=== PATIENT | male | born 1950 | race Caucasian/White ===

== ENCOUNTER 2024-03-13 02:56 | Emergency (ER) | payer OTHER, SELFPAY ==
[2024-03-13 03:00] VITALS: BP 104/65
[2024-03-13 03:26] VITALS: BP 133/59
--- NOTE | 2024-03-13 03:44 | ED.GENMED ---
Addendum entered and electronically signed by Tahmina Brand PA-C 03/14/24 09:29:
Positive blood culture appreciated. Urine appears to be the source, gram-negative rods in the blood culture bottle. Patient was called and left a message on his cell phone to return to the ER.
Original Note:
History of Present Illness
<ALEXANDRE Kaur - Last Filed: 03/13/24 06:49>
General
Chief Complaint: Fever
Source: patient and spouse
Exam Limitations: none
Time Seen by Provider: 03/13/24 03:30
Nursing documentation reviewed up to this point in time: agreed with
Travel History
Have you had any contact with someone who has COVID-19?: No
Do you have any symptoms of coronavirus? Fever > 100 degrees, chills, cough, shortness of breath, sore throat, loss of taste or smell, muscle aches, or headache?: Yes
Symptoms:: fever cough
History of Present Illness
History of Present Illness:
This is a 73 year old male with history of CKD stage 3 and Raynaud's disease who presents to the ED with complaint of fever x1 week. Patient reports he has had a fever tmax 103.1 degree F oral starting last week. He has associated chills and cold
sweats. He has been taking Ibuprofen and Tylenol which provide relief. He states his symptoms began with a sore throat last week, which has now resolved. He has also been feeling mildly nauseous. He has an intermittent dry cough. He went to urgent
care 2 days ago, where he had a negative rapid strep, pending throat culture and unremarkable CXR. He started to feel better yesterday morning but gradually throughout the day. He had a telehealth appointment who started him on Doxycycline. He has
had 1 dose so far. His last Ibuprofen was 1hr ago and Tylenol around 11pm. He admits to mild urinary frequency. He denies SOB, CP, headaches, dysuria, nausea, vomiting or diarrhea. He denies known sick contacts or recent travel. No recent hikes or
known tic bites. Denies rashes.
Review of Systems
<ALEXANDRE Kaur - Last Filed: 03/13/24 06:49>
Review of Systems
Allergies reviewed?: Yes
All Other Systems: Not applicable
Constitutional: Reports fever and chills
EENT: Reports sore throat
Respiratory: Reports cough
Cardiac: Reports no symptoms
ABD/GI: Reports no symptoms
: Reports no symptoms
Musculoskeletal: Reports no symptoms
Skin: Reports no symptoms
Neurological: Reports no symptoms
Endocrine: Reports no symptoms
Hematologic/Lymphatic: Reports no symptoms
Psychiatric: Reports no symptoms
Phy Exam
<ALEXANDRE Kaur - Last Filed: 03/13/24 06:49>
General Physical Exam
General Presentation: well appearing and no apparent distress
General Skin: dry and feels hot
General Habitus: normal
General Mental: alert
General Hydration: appears well hydrated
ENT Exam
ENT Exam: EOMI, pharynx normal, neck supple and normocephalic
Eye Exam
Eye Exam: PERRL, cornea clear and conjunctiva normal
Cardiovascular Exam
Cardiovascular Exam: regular rate/rhythm, no edema, no murmur and normal peripheral pulses
Pulmonary Exam
Pulmonary Exam: lungs clear, no respiratory distress, no rales, no crackles, no rhonchi, no stridor, no wheezing and no cough
Gastrointestinal Exam
Gastrointestinal Exam: normal bowel sounds, non tender, soft, no organomegaly, no pulsatile mass and non distended
Neurological Exam
Neurological Exam: alert, oriented x3, no motor deficits and speech normal
Musculoskeletal Exam
Musculoskeletal Exam: full ROM and no edema
Skin Exam
Skin Exam: normal color, warm/dry, no rash and no petechia
Psychiatric Exam
Psychiatric Exam: normal mood/affect
Course
<ALEXANDRE Kaur - Last Filed: 03/13/24 06:49>
Orders/Labs/Results
Orders:
Orders
03/13/24 03:13
COVID-19 Antigen Urgent
Source: Nasal Swab
Influenza A+B Rapid Molecular Urgent
ARIA Source: Nasal Swab
Specimen Description:
03/13/24 03:43
CXR2 [CR Chest - 2 Views ] Urgent
Comment:
Reason For Exam: Cough
03/13/24 04:30
Complete Blood Count/With Diff Urgent
Comprehensive Metabolic Panel Urgent
Lactic Acid Urgent
Lipase Urgent
Troponin I Urgent
Urinalysis Reflex To Culture Urgent
Date Specimen was Collected: 03/13/24
Time Specimen was Collected: 04:29
Urine Microscopic Reflex Cult Urgent
Blood Culture Q30M
ARIA Source: Blood/Venous
Specimen Description:
Urine Culture Urgent
ARIA Source: U
Specimen Description:
Date Specimen was Collected: 03/13/24
Time Specimen was Collected: 04:29
03/13/24 04:34
Blood Culture Q30M
ARIA Source: Blood/Venous
Specimen Description:
03/13/24 06:46
Fosfomycin [Monurol] 3 gm PO ONCE ONE
Abnormal Lab Results
03/13/24
04:30
RBC 3.73 L 10^6/uL
(4.70-6.10)
Hgb 11.1 L g/dL
(13.0-18.0)
Hct 33.1 L %
(39.0-52.0)
Absolute Neuts (auto) 7.6 H 10^3/uL
(1.4-6.5)
Absolute Lymphs (auto) 0.2 L 10^3/uL
(1.2-3.4)
Neutrophils % 92.9 H %
(42.2-75.2)
Lymphocytes % 2.8 L %
(20.5-51.1)
Carbon Dioxide 21 L mmol/L
(22-30)
BUN 52 H mg/dl
(9-20)
Creatinine 2.6 H mg/dL
(0.7-1.3)
Glucose 124 H mg/dl
(70-99)
Alkaline Phosphatase 133 H U/L
(38-126)
Albumin 3.4 L g/dl
(3.5-5.0)
Urine Ketones Trace A
(Negative)
Ur Occult Blood Reflex 2+ A
(Negative)
Leukocyte Esterase Rfl 2+ A
(Negative)
Urine WBC (Reflex) >100 A /HPF
(0-5)
Urine Bacteria (Reflex) Many A
(Negative)
Urine Albumin (Reflex) 2+ A
(Neg - Trace)
03/13/24 04:30
03/13/24 04:30
Vital Signs
Initial and Last Documented VS:
Initial Vital Signs
Temp Pulse Resp BP Pulse Ox
103.3 F H 118 20 104/65 92
03/13/24 03:00 03/13/24 03:00 03/13/24 03:00 03/13/24 03:00 03/13/24 03:00
Last Documented Vital Signs
Temp Pulse Resp BP Pulse Ox
103.3 F H 71 21 113/68 87
03/13/24 03:00 03/13/24 06:15 03/13/24 03:30 03/13/24 06:00 03/13/24 05:30
<Soy Barbosa, DO - Last Filed: 03/13/24 06:51>
Orders/Labs/Results
Orders:
Orders
03/13/24 03:13
COVID-19 Antigen Urgent
Source: Nasal Swab
Influenza A+B Rapid Molecular Urgent
ARIA Source: Nasal Swab
Specimen Description:
03/13/24 03:43
CXR2 [CR Chest - 2 Views ] Urgent
Comment:
Reason For Exam: Cough
03/13/24 04:30
Complete Blood Count/With Diff Urgent
Comprehensive Metabolic Panel Urgent
Lactic Acid Urgent
Lipase Urgent
Troponin I Urgent
Urinalysis Reflex To Culture Urgent
Date Specimen was Collected: 03/13/24
Time Specimen was Collected: 04:29
Urine Microscopic Reflex Cult Urgent
Blood Culture Q30M
ARIA Source: Blood/Venous
Specimen Description:
Urine Culture Urgent
ARIA Source: U
Specimen Description:
Date Specimen was Collected: 03/13/24
Time Specimen was Collected: 04:29
03/13/24 04:34
Blood Culture Q30M
ARIA Source: Blood/Venous
Specimen Description:
03/13/24 06:46
Fosfomycin [Monurol] 3 gm PO ONCE ONE
Abnormal Lab Results
03/13/24
04:30
RBC 3.73 L 10^6/uL
(4.70-6.10)
Hgb 11.1 L g/dL
(13.0-18.0)
Hct 33.1 L %
(39.0-52.0)
Absolute Neuts (auto) 7.6 H 10^3/uL
(1.4-6.5)
Absolute Lymphs (auto) 0.2 L 10^3/uL
(1.2-3.4)
Neutrophils % 92.9 H %
(42.2-75.2)
Lymphocytes % 2.8 L %
(20.5-51.1)
Carbon Dioxide 21 L mmol/L
(22-30)
BUN 52 H mg/dl
(9-20)
Creatinine 2.6 H mg/dL
(0.7-1.3)
Glucose 124 H mg/dl
(70-99)
Alkaline Phosphatase 133 H U/L
(38-126)
Albumin 3.4 L g/dl
(3.5-5.0)
Urine Ketones Trace A
(Negative)
Ur Occult Blood Reflex 2+ A
(Negative)
Leukocyte Esterase Rfl 2+ A
(Negative)
Urine WBC (Reflex) >100 A /HPF
(0-5)
Urine Bacteria (Reflex) Many A
(Negative)
Urine Albumin (Reflex) 2+ A
(Neg - Trace)
03/13/24 04:30
03/13/24 04:30
Vital Signs
Initial and Last Documented VS:
Initial Vital Signs
Temp Pulse Resp BP Pulse Ox
103.3 F H 118 20 104/65 92
03/13/24 03:00 03/13/24 03:00 03/13/24 03:00 03/13/24 03:00 03/13/24 03:00
Last Documented Vital Signs
Temp Pulse Resp BP Pulse Ox
103.3 F H 71 21 113/68 87
03/13/24 03:00 03/13/24 06:15 03/13/24 03:30 03/13/24 06:00 03/13/24 05:30
<ALEXANDRE Kaur - Last Filed: 03/13/24 06:49>
MDM/Problems Addressed
Differential Diagnosis Includes:
Pneumonia, COVID-19, influenza, strep pharyngitis, UTI, URI
COVID-19 and influenza considered due to fever, however negative results. Strep pharyngitis considered due to sore throat, however symptoms do not meet center criteria. Physical exam shows no oral exudates or erythema. He also has a cough. Rapid
strep at urgent care negative. Pneumonia considered, however CXR had mild suspicious findings but not clear. Lungs were CTA. UTI considered due to urinary frequency and urinalysis findings. I suspect his cough, sore throat, and potentially fever
were related to an URI and has now developed a UTI
<ALEXANDRE Kaur - Last Filed: 03/13/24 06:49>
*Critical Care Note
Total Time (30-74mins, 75-104mins- exclusive of procedures): Not Applicable
ED Attending Note
<ALEXANDRE Kaur - Last Filed: 03/13/24 06:49>
-
Portions of this chart may have been created with voice recognition software.� Occasional wrong word or��sound alike� substitutions may have occurred due to the inherent limitations of voice recognition software.
<Soy Barbosa DO - Last Filed: 03/13/24 06:51>
ED Attending Note
Patient seen and examined by attending physician: Yes
I performed the substantive portion of visit, reviewed & personally made and approve the management plan that is documented in note by myself or CLAUDIA.: No
ED Attending Note:
73-year-old male presents with fever x 1 week. According to , his Tmax was 103.1 �F. He has been taking ibuprofen and with minimal relief. He did have a sore throat which has resolved. Patient was seen by nephrology for proteinuria and is in
the midst of a workup. Patient does report urinary frequency and dysuria. Patient was seen in conjunction with the PA student. I have reviewed and agree with the history and treatment plan presented. On my independent physical exam, patient is
awake, alert, and oriented x3. Heart is regular rate rhythm. Lungs are completely clear to auscultation bilaterally no wheezes rales or rhonchi. Abdomen soft nontender nondistended hepatosplenomegaly. Extremities moves all 4 extremities.
Plan patient will continue to take doxycycline as prescribed by urgent care. He will take a one-time dose of Monurol. He will follow-up as needed.
Discharge Plan
Departure
Patient Disposition: Home (Routine Discharge)
Date of Disposition: 03/13/24
Time of Disposition: 06:50
Patient with high blood pressure during this ER visit?: No
Condition: Good
Discharge Problem:
Viral syndrome, Acute UTI
Instructions: Fever, Adult (DC), Viral Syndrome (DC), Urinary Tract Infection, Adult ED
Referrals:
LIZABETH PALOMO MD [Family Provider] -
Activity Restrictions/Additional Instructions:
It was a pleasure meeting you and taking part in your care. We hope for your continued healing and wellness.
Please read discharge instructions in their entirety. However, they are for general education and may not describe your exact diagnosis at discharge. Information on your ER visit and medical conditions were discussed with you along with appropriate
follow up information...
If indicated, please take your medications as instructed and indicated on discharge paperwork.
Please schedule a follow up appointment as directed. Call to schedule an appointment
Please return to the emergency department with ANY change in, persisting, or worsening of symptoms. If any of your symptoms do not improve, or persist, or become more severe within 6-12 hours, please return to the emergency department for further
care.
Please return to the emergency department if you develop a headache, neck pain/stiffness, fever greater than 100.4F, chest pain, shortness of breath, persistent nausea, vomiting, slurred speech, difficulty walking, numbness/tingling, weakness, signs
of infection or any other symptoms that are worrisome to you.
If you have any questions or concerns please do not hesitate to call the Hospital at or E-mail me directly at [email or web address]
Interventions
Interventions:
*Risk Screen - Suicide Last Done: 03/13/24 03:00
*General Assessment Last Done: 03/13/24 03:00
*Neglect/Abuse Screening Last Done: 03/13/24 03:00
ED- Fall Risk Assessment Last Done: 03/13/24 03:00
*ED COVID-19 Vaccine History Last Done: 03/13/24 03:00
ED- Neurological Assessment Last Done: 03/13/24 03:33
ED-Skin Assessment Last Done: 03/13/24 03:33
Discharge Date and Time
Print Language: ISRAELI
[2024-03-13 03:56] LABS: COVID-19 Antigen Negative (Negative)
[2024-03-13 04:40] LABS: % Basophils 0.5 % (0-2); % Eosinophils 0.5 % (0-6); % Immature Granulocytes 0.2 % (0-0.5); % Lymphocytes 2.8 % (20.5-51.1); % Monocytes 3.1 % (1.7-9.3); % Neutrophils 92.9 % (42.2-75.2); Absolute Lymphocytes 0.2 10^3/uL (1.2-3.4); Absolute Monocytes 0.3 10^3/uL (0.1-0.6); Absolute Neutrophils 7.6 10^3/uL (1.4-6.5); Hematocrit 33.1 % (39.0-52.0); Hemoglobin 11.1 g/dL (13.0-18.0); Mean Corp Hgb Conc. 33.5 g/dL (33.0-37.0); Mean Corpuscular Hgb 29.8 pg (27.0-31.0); Mean Corpuscular Volume 88.7 fL (80.0-94.0); Mean Platelet Volume 9.7 fL (7.4-10.4); Nucleated Red Blood Cells % 0 % (-); Platelet Count 284 10^3/uL (130-400); Red Blood Cell Count 3.73 10^6/uL (4.70-6.10); Red Cell Dist. Width 13.9 % (11.5-14.5); White Blood Cell Count 8.2 10^3/uL (4.8-10.8)
[2024-03-13 04:44] LABS: Urine Albumin 2+ (Neg - Trace); Urine Bilirubin Negative (Negative); Urine Color Yellow; Urine Glucose Negative (Negative); Urine Ketone Trace (Negative); Urine Leukocyte 2+ (Negative); Urine Nitrite Negative (Negative); Urine Occult Blood 2+ (Negative); Urine Urobilinogen Negative (Neg - 1+)
[2024-03-13 04:45] LABS: Urine Character Cloudy (Clear)
[2024-03-13 05:00] VITALS: BP 110/59
[2024-03-13 05:05] LABS: Lactic Acid 1.2 mmol/L (0.7-2.0)
[2024-03-13 05:07] LABS: ALT (SGPT) 35 U/L (0-50); AST (SGOT) 49 U/L (17-59); Albumin 3.4 g/dl (3.5-5.0); Alkaline Phosphatase 133 U/L (38-126); Blood Urea Nitrogen 52 mg/dl (9-20); Calcium 8.4 mg/dl (8.4-10.2); Carbon Dioxide 21 mmol/L (22-30); Chloride 107 mmol/L (98-107); Glucose 124 mg/dl (70-99); Lipase 257 U/L (23-300); Sodium 135 mmol/L (135-145); Total Bilirubin 0.6 mg/dl (0.2-1.3); Total Protein 6.5 g/dl (6.3-8.2); eGFR 25.41
[2024-03-13 05:18] LABS: Troponin I 0.029 ng/ml
[2024-03-13 05:52] LABS: Urine Amorphous Seen; Urine Mucus Many; Urine Squamous Cell >30 /LPF (Few); Urine Urothelial Cell >30 /LPF (FEW)
[2024-03-13 05:53] LABS: Urine Bacteria Many (Negative); Urine Waxy Cast 0-2 /LPF; Urine White Cell >100 /HPF (0-5)
[2024-03-13 05:54] LABS: Urine Sperm Seen
[2024-03-13 06:00] VITALS: BP 113/68
[2024-03-13] MEDS: MONUROL 3 GM PO (06:53)
== END 2024-03-13 07:30 | disposition home or self-care (01) ==
LOC: EMR 02:56
PROVIDERS: EMERGENCY PHYSICIAN Student in an Organized Health Care Education/Training Program; FAMILY PHYSICIAN Internal Medicine
DX: B34.9 Viral infection, unspecified (principal); N39.0 Urinary tract infection, site not specified; N18.30 Chronic kidney disease, stage 3 unspecified; I73.00 Raynaud's syndrome without gangrene
CPT/HCPCS: 99283; 71046; 80053; 81003; 81015; 83605; 83690; 84484; 85025; 87040; 87077; 87086; 87186; 87205; 87502; 87811

== ENCOUNTER 2024-03-14 16:05 | Inpatient (IN) | payer OTHER, SELFPAY ==
[2024-03-14] VITALS (8 sets, daily range): BP systolic 137–158; BP diastolic 46–89; BMI 26.3; BMI 26.0
[2024-03-14 14:03] LABS: % Basophils 0.8 % (0-2); % Eosinophils 2.4 % (0-6); % Immature Granulocytes 0.5 % (0-0.5); % Lymphocytes 6.8 % (20.5-51.1); % Monocytes 11.4 % (1.7-9.3); % Neutrophils 78.1 % (42.2-75.2); Absolute Basophils 0.1 10^3/uL (0-0.2); Absolute Eosinophils 0.2 10^3/uL (0-0.7); Absolute Lymphocytes 0.5 10^3/uL (1.2-3.4); Absolute Monocytes 0.9 10^3/uL (0.1-0.6); Absolute Neutrophils 5.8 10^3/uL (1.4-6.5); Hematocrit 34.7 % (39.0-52.0); Hemoglobin 11.7 g/dL (13.0-18.0); Mean Corp Hgb Conc. 33.7 g/dL (33.0-37.0); Mean Corpuscular Hgb 29.9 pg (27.0-31.0); Mean Corpuscular Volume 88.7 fL (80.0-94.0); Mean Platelet Volume 9.2 fL (7.4-10.4); Nucleated Red Blood Cells % 0 % (-); Platelet Count 308 10^3/uL (130-400); Red Blood Cell Count 3.91 10^6/uL (4.70-6.10); Red Cell Dist. Width 13.9 % (11.5-14.5); White Blood Cell Count 7.5 10^3/uL (4.8-10.8)
[2024-03-14 14:04] LABS: Urine Albumin 1+ (Neg - Trace); Urine Bilirubin Negative (Negative); Urine Character Clear (Clear); Urine Color Yellow; Urine Glucose Negative (Negative); Urine Ketone Negative (Negative); Urine Leukocyte 1+ (Negative); Urine Nitrite Negative (Negative); Urine Occult Blood Trace (Negative); Urine Specific Gravity 1.015 (<1.030); Urine Urobilinogen Negative (Neg - 1+)
--- NOTE | 2024-03-14 14:07 | ED.GENMED ---
History of Present Illness
General
Chief Complaint: Abnormal Lab Value
Source: patient
Exam Limitations: none
Time Seen by Provider: 03/14/24 13:01
Travel History
Have you had any contact with someone who has COVID-19?: No
Do you have any symptoms of coronavirus? Fever > 100 degrees, chills, cough, shortness of breath, sore throat, loss of taste or smell, muscle aches, or headache?: No
History of Present Illness
History of Present Illness:
73-year-old male presents in referral after call back. He was here 2 evenings ago thought to have UTI. He was given fosfomycin. He was called back today as his urine cultures and blood cultures demonstrated gram-negative bacilli. He notes no
persistent fever. He does note occasional shaking chills. No vomiting. He has chronic kidney disease but is not a diabetic. No other complaints at this time
Phy Exam
Physical Exam
Physical Exam:
General: Well-appearing male no acute respiratory distress
HEENT: Normocephalic atraumatic
Heart: Regular rate and rhythm no murmurs
Lungs: Clear no wheeze
Abdomen soft nontender nondistended no guarding rebound normal bowel sound
Extremities: No cyanosis
Course
Orders/Labs/Results
Orders:
Orders
03/14/24 13:55
Complete Blood Count/With Diff Urgent
Comprehensive Metabolic Panel Urgent
Urinalysis Reflex To Culture Urgent
Date Specimen was Collected: 03/14/24
Time Specimen was Collected: 13:47
Urine Microscopic Reflex Cult Urgent
Blood Culture Q30M
ARIA Source: Blood/Venous
Specimen Description:
Urine Culture Urgent
ARIA Source: U
Specimen Description:
Date Specimen was Collected: 03/14/24
Time Specimen was Collected: 13:47
03/14/24 14:02
Blood Culture Q30M
ARIA Source: Blood/Venous
Specimen Description:
03/14/24 14:07
Piperacillin/Tazo 3.375 Gram [Zosyn] 3.375 gram in 50 ml IV NOW
Abnormal Lab Results
03/14/24
13:55
RBC 3.91 L 10^6/uL
(4.70-6.10)
Hgb 11.7 L g/dL
(13.0-18.0)
Hct 34.7 L %
(39.0-52.0)
Absolute Lymphs (auto) 0.5 L 10^3/uL
(1.2-3.4)
Absolute Monos (auto) 0.9 H 10^3/uL
(0.1-0.6)
Neutrophils % 78.1 H %
(42.2-75.2)
Lymphocytes % 6.8 L %
(20.5-51.1)
Monocytes % 11.4 H %
(1.7-9.3)
BUN 50 H mg/dl
(9-20)
Creatinine 2.1 H mg/dL
(0.7-1.3)
Albumin 3.4 L g/dl
(3.5-5.0)
Ur Occult Blood Reflex Trace A
(Negative)
Leukocyte Esterase Rfl 1+ A
(Negative)
Urine RBC 3-6 A /HPF
(0-2)
Urine WBC (Reflex) 26-30 A /HPF
(0-5)
Urine Bacteria (Reflex) Moderate A
(Negative)
Urine Albumin (Reflex) 1+ A
(Neg - Trace)
03/14/24 13:55
03/14/24 13:55
Vital Signs
Initial and Last Documented VS:
Initial Vital Signs
Temp Pulse Resp BP Pulse Ox
97.6 F 70 18 145/77 99
03/14/24 11:28 03/14/24 11:28 03/14/24 11:28 03/14/24 11:28 03/14/24 11:28
Last Documented Vital Signs
Temp Pulse Resp BP Pulse Ox
97.6 F 61 16 146/79 100
03/14/24 11:28 03/14/24 14:00 03/14/24 14:00 03/14/24 14:00 03/14/24 14:00
MDM/Problems Addressed
Differential Diagnosis Includes:
Reviewed prior note. Reviewed microbiology testing. Urine culture and blood cultures show gram-negative bacilli. Vital signs currently stable will recheck labs and cultures. Start Zosyn. Will admit to hospital for gram-negative bacteremiai
likely has a urine source
*Critical Care Note
Total Time (30-74mins, 75-104mins- exclusive of procedures): Not Applicable
ED Attending Note
-
Portions of this chart may have been created with voice recognition software.� Occasional wrong word or��sound alike� substitutions may have occurred due to the inherent limitations of voice recognition software.
Discharge Plan
Departure
Patient Disposition: Admit
Date of Disposition: 03/14/24
Time of Disposition: 14:58
Admit to: Telemetry
Presentation/result/management discussed w/ accepting MD/DO: Hospitalist
Discharge Problem:
Gram-negative bacteremia
Prescriptions:
No Action
multivitamin Tablet
1 tab PO HS
atorvastatin 20 mg tablet
20 mg PO HS
ketoconazole 2 % shampoo
1 applic TOPICAL HS
ibuprofen 200 mg Capsule
400 mg PO Q6H PRN (Reason: mild pain/fever)
acetaminophen 500 mg Tablet
1,000 mg PO Q6H PRN (Reason: mild pain/fever)
lisinopril 10 mg tablet
20 mg PO HS
fiber
1 tab PO HS
Doxycycline
100 mg PO BID
Referrals:
LIZABETH PALOMO MD [Family Provider] -
Interventions
Interventions:
*Risk Screen - Suicide Last Done: 03/14/24 11:28
*General Assessment Last Done: 03/14/24 11:28
*Neglect/Abuse Screening Last Done: 03/14/24 11:28
ED- Fall Risk Assessment Last Done: 03/14/24 13:46
*ED COVID-19 Vaccine History Last Done: 03/14/24 11:28
Discharge Date and Time
Print Language: HEBREW
[2024-03-14 14:11] LABS: Urine Squamous Cell 16-20 /LPF (Few); Urine Urothelial Cell 0-2 /LPF (FEW)
[2024-03-14 14:12] LABS: Urine Bacteria Moderate (Negative); Urine White Cell 26-30 /HPF (0-5)
[2024-03-14 14:31] LABS: ALT (SGPT) 31 U/L (0-50); AST (SGOT) 32 U/L (17-59); Albumin 3.4 g/dl (3.5-5.0); Alkaline Phosphatase 110 U/L (38-126); Blood Urea Nitrogen 50 mg/dl (9-20); Calcium 8.8 mg/dl (8.4-10.2); Carbon Dioxide 25 mmol/L (22-30); Chloride 105 mmol/L (98-107); Estimated Creatinine Clearance 34 ml/min; Glucose 90 mg/dl (70-99); Potassium 4.7 mmol/L (3.5-5.1); Sodium 135 mmol/L (135-145); Total Bilirubin 0.4 mg/dl (0.2-1.3); Total Protein 6.6 g/dl (6.3-8.2); eGFR 32.83
[2024-03-14] MEDS: ZOSYN 50 IV ×2 (15:08→21:50)
--- NOTE | 2024-03-14 15:13 | EDRN ---
Dr. Lombardi in room w/ pt at this time.
--- NOTE | 2024-03-14 15:39 | HPS.HSE ---
Family Physician
-
Family Physician: LIZABETH PALOMO MD
Chief Complaint
-
Fever, chills, positive blood cultures
History of Present Illness
73-year-old male developed fever about a week ago with subsequent sore throat and dry cough. Had a video conference call with his primary care practice and they recommended going to urgent care. Evaluated in urgent care with negative workup
including chest x-ray and rapid strep test. Had a follow-up video conference call with his primary care practice and they empirically placed him on doxycycline twice daily, has taken 4 doses so far.
Symptoms persisted and he came into the emergency room early yesterday morning and diagnosed with possible viral syndrome and urinary tract infection, administered a dose of fosfomycin and discharged. Documentation notes heat had UTI symptoms on
evaluation yesterday. Instructed to continue doxycycline.
After discharge from the ER, it was noted that his blood cultures turn positive and he was called back.
Has not had any further fevers or chills since the ER visit 24 hours ago.
Recently saw a damper worker and is in the midst of a workup for chronic kidney disease.
Remote history of nephrolithiasis over 40 years ago, spontaneously passed 2 stones. Did not require any urologic intervention.
Currently does not see a urologist. Gets up 2-3 times during the night to urinate.
Today for me he denies UTI symptoms.
Medical History
Past Medical History
Past Medical History: Reports Other
Additional Past Medical History:
Essential hypertension
CKD 3b
Raynaud's disease
Remote history of nephrolithiasis
Past Surgical History: Reports Other
Additional Past Surgical History:
Right Achilles tendon rupture and repair
Cataract surgery
Social History
Tobacco: Non-smoker
Alcohol: Occasional
Drug: None
Personal:
Living: With Family
Family History
Family History: Not pertinent
Allergies / Home Medications
Allergies reflects when Allergies were last updated in [employer].
Home Medications with original date entered in [employer]
Allergy/Medication List:
Allergies
Allergy/AdvReac Type Severity Reaction Status Date / Time
contrast dye Allergy Hives Uncoded 03/14/24 11:29
Home Medications
Doxycycline 100 mg PO BID 03/14/24
acetaminophen 500 mg tablet 1,000 mg PO Q6H PRN mild pain/fever 03/14/24
atorvastatin 20 mg tablet 20 mg PO HS 03/14/24
fiber 1 tab PO HS 03/14/24
ibuprofen 200 mg capsule 400 mg PO Q6H PRN mild pain/fever 03/14/24
ketoconazole 2 % shampoo 1 applic topical HS 03/14/24
lisinopril 10 mg tablet 20 mg PO HS 03/14/24
multivitamin 1 tab PO HS 03/14/24
Review of Systems
-
History Source: Patient and Family
A 12 point ROS was completed and negative except as noted: Yes
Physical Exam
Vital Signs
Vital Signs
Temp Pulse Resp BP Pulse Ox
97.6 F 78 16 137/89 99
03/14/24 11:28 03/14/24 15:12 03/14/24 15:12 03/14/24 15:12 03/14/24 15:12
Physical Exam
General: Well Developed, Well Nourished, No Apparent Distress and Comfortable
HEENT: NormoCephalic, Anicteric and Moist mucous membranes
Respiratory: Clear
Cardiac: S1/S2 and Regular Rhythm
GI: Soft, Non Tender and Non Distended
Genito-urinary: Deferred by me
Musculoskeletal: No Clubbing, No Cyanosis and No Edema
Skin: Warm and Dry
Neuro: AO x 3
Hematologic/Lymphatic: No Lymphadenopathy
Psych: Calm
Laboratory Results
-
03/14/24 13:55
03/14/24 13:55
Laboratory Results
Total Bilirubin 0.4 mg/dl (0.2-1.3) 03/14/24 13:55
AST 32 U/L (17-59) 03/14/24 13:55
ALT 31 U/L (0-50) 03/14/24 13:55
Alkaline Phosphatase 110 U/L (38-126) 03/14/24 13:55
Impression/Plan
-
Sepsis due to UTI - presentation yesterday morning with tachycardia, fever and chills at home. Afebrile today. WBC count normal. Hemodynamically stable. [facility], continue empiric antibiotics. Blood cultures noted to be positive for
gram-negative bacilli. Urine culture positive as well. Repeat blood cultures pending.
Check CT abdomen and pelvis without contrast, evaluate for nephrolithiasis or any anatomic explanation for UTI. Avoid fluoroquinolones given history of Achilles tendon rupture.
ID consult.
Essential hypertension -stable.
MIRI on CKD 3B -baseline creatinine 1.7 according to patient. Creatinine was 2.6 yesterday, 2.1 today. Etiology of MIRI likely due to sepsis, use of NSAIDs. Check bladder scan, rule out retention. IV fluid hydration. Hold lisinopril. Stop NSAIDs.
Hyperlipidemia -continue atorvastatin.
Normocytic anemia -likely chronic, likely due to CKD. Will need outpatient follow-up.
Raynaud's disease
Full code
updated at the bedside.
--- NOTE | 2024-03-14 17:28 | EDRN ---
Pt is eating boxed lunch at this time and drinking water. Pt has a ready bed but is to go to CT after [address] scans so will keep pt here to go up after CT.
--- NOTE | 2024-03-14 17:45 | EDRN ---
Infectious Disease w/ pt at this time.
--- NOTE | 2024-03-14 17:55 | EDRN ---
Pt left ED for CT then to go to admission bed.
--- NOTE | 2024-03-14 18:14 | CON.ID ---
Consultation
-
Date/Time Consultation Requested: 03/14/24 15:33
Date/Time Consultation Performed: 03/14/24 18:16
Requesting Provider: Dr Ahuja
Performing Provider: Dr Coffman
Reason for Consultation: UTI
Chief Complaint / Past History
Chief Complaint
Fever, chills, positive blood cultures
History of Present Illness
Mr Ratliff is a 73 year old male with recent course of doxycycline for URI who later developed urinary frequency and decreased stream, also fevers rigors. Seen here, ua with pyuria, continued doxy, got a dose of fosfomycin; urine and blood cultures
later positive and he was recalled for admission.
Since arrival this visit Tmax 103.3, bp stable, wbc 7.5, hgb 11, plt 308, cr 2.1, ua: 26-30 wbc/hpf, 5/3 blood culture GNR, 5/3 urine culture gnr 40K , CT a/p done not yet formally read - my read large prostate and bladder, currently on zosyn which
I agree with.
Past History
Additional Past Medical History:
Essential hypertension
CKD 3b
Raynaud's disease
Remote history of nephrolithiasis
Additional Past Surgical History:
Right Achilles tendon rupture and repair
Cataract surgery
Allergy History:
contrast dye Allergy (Uncoded 03/14/24 11:29)
Hives
Medications Reviewed: Yes
Social History
Tobacco: Non-Smoker
Alcohol: Occasional
Drug: None
Family History
Family History: Not Pertinent
Review of Systems
Review of Systems
General: Fever and Chills
All systems: All other systems were reviewed and were negative
Vital Signs
Temp Pulse Resp BP Pulse Ox
97.6 F 68 16 149/46 98
03/14/24 11:28 03/14/24 17:20 03/14/24 17:20 03/14/24 17:20 03/14/24 17:20
Physical Exam
Physical Exam
Constitutional: No Acute Distress
Cardiovascular: Regular Rate and S1/S2; Negative Murmur or Rub
Pulmonary: Clear and Symmetric; Negative Wheezes, Rales or Rhonchi
Gastrointestinal: Soft, Non Tender, Non Distended and Normal Bowel Sounds
Genito-Urinary: Negative Suprapubic Tenderness or CVA Tenderness
Skin: Warm and Dry; Negative Rash or Jaundice
Lab / Diagnostic Study Results
03/14/24 13:55
03/14/24 13:55
Abs Immat Gran (auto) 0.0 10^3/uL (0-0.05) 03/14/24 13:55
Absolute Neuts (auto) 5.8 10^3/uL (1.4-6.5) 03/14/24 13:55
Absolute Lymphs (auto) 0.5 10^3/uL (1.2-3.4) L 03/14/24 13:55
Absolute Monos (auto) 0.9 10^3/uL (0.1-0.6) H 03/14/24 13:55
Absolute Basos (auto) 0.1 10^3/uL (0-0.2) 03/14/24 13:55
Immature Gran % 0.5 % (0-0.5) 03/14/24 13:55
Neutrophils % 78.1 % (42.2-75.2) H 03/14/24 13:55
Lymphocytes % 6.8 % (20.5-51.1) L 03/14/24 13:55
Monocytes % 11.4 % (1.7-9.3) H 03/14/24 13:55
Eosinophils % 2.4 % (0-6) 03/14/24 13:55
Basophils % 0.8 % (0-2) 03/14/24 13:55
Ur Squamous Epith Cells 16-20 /LPF (Few) 05/04/24 13:55
Microbiology Results
Micro:
03/14/24 14:02 Blood Culture - Pending
Blood/Venous
03/14/24 13:55 Urine Culture - Pending
Urine
03/14/24 13:55 Blood Culture - Pending
Blood/Venous
Assessment / Plan
Probable UTI
GNR Bacteremia
- follow up repeat blood cultures
- follow for ID and sensi of the GNR
- check QTc
- continue zosyn
- follow clinically
[2024-03-14] MEDS: NSS 1000 IV (18:34)
[2024-03-14] MEDS: HEPARIN 5000 UNITS SC (20:29)
[2024-03-14] MEDS: LIPITOR 20 MG PO (21:50)
[2024-03-14] MEDS: THERAGRAN 1 TABLET PO (21:50)
[2024-03-15] MEDS: NSS 1000 IV (05:33)
[2024-03-15] MEDS: ZOSYN 50 IV (05:33)
[2024-03-15 05:55] LABS: % Basophils 0.7 % (0-2); % Eosinophils 2.9 % (0-6); % Immature Granulocytes 0.3 % (0-0.5); % Lymphocytes 11.9 % (20.5-51.1); % Monocytes 11.9 % (1.7-9.3); % Neutrophils 72.3 % (42.2-75.2); Absolute Basophils 0.1 10^3/uL (0-0.2); Absolute Eosinophils 0.2 10^3/uL (0-0.7); Absolute Lymphocytes 0.9 10^3/uL (1.2-3.4); Absolute Monocytes 0.9 10^3/uL (0.1-0.6); Absolute Neutrophils 5.2 10^3/uL (1.4-6.5); Hematocrit 31.8 % (39.0-52.0); Hemoglobin 10.5 g/dL (13.0-18.0); Mean Corpuscular Hgb 29.1 pg (27.0-31.0); Mean Corpuscular Volume 88.1 fL (80.0-94.0); Nucleated Red Blood Cells % 0 % (-); Platelet Count 329 10^3/uL (130-400); Red Blood Cell Count 3.61 10^6/uL (4.70-6.10); Red Cell Dist. Width 13.6 % (11.5-14.5); White Blood Cell Count 7.2 10^3/uL (4.8-10.8)
[2024-03-15 06:25] LABS: Blood Urea Nitrogen 38 mg/dl (9-20); Calcium 8.4 mg/dl (8.4-10.2); Carbon Dioxide 23 mmol/L (22-30); Chloride 107 mmol/L (98-107); Estimated Creatinine Clearance 34 ml/min; Glucose 92 mg/dl (70-99); Potassium 4.8 mmol/L (3.5-5.1); Sodium 137 mmol/L (135-145); eGFR 32.83
[2024-03-15 07:30] VITALS: BP 125/67
[2024-03-15] MEDS: HEPARIN 5000 UNITS SC (09:07)
--- NOTE | 2024-03-15 10:54 | W.PN.HOSP.TC ---
Addendum entered and electronically signed by Elías Ahuja DO 03/15/24 11:04:
Bladder scan showed only 50 cc.
Original Note:
Today's Communication/Plan
-
Continue antibiotics
Bladder scan
Assessment / Plan
Assessment / Plan
Gen-AAOx3, NAD
HEENT-NC, AT, anicteric, clear oral mm
Neck-supple
CV-reg, no M, +S1/S2
Lungs-clear B/L
Abd-soft, NT, ND
Ext-no edema
Musculoskeletal-no cyanosis, clubbing
Skin-warm and dry
Neuro-grossly non-focal
Psych-calm, cooperative
E. coli sepsis due to UTI -fever resolved. Repeat cultures negative. IV Zosyn per ID. CT abdomen/pelvis limited without contrast but no nephrolithiasis noted, moderately enlarged prostate gland with suspicion for bladder outlet obstruction noted.
Awaiting bladder scan. Will need outpatient urology follow-up. Discussed with patient.
Essential hypertension -stable.
MIRI on CKD 3B -baseline creatinine 1.7 according to patient. Stable at 2.1 today. Etiology of MIRI likely due to sepsis, use of NSAIDs. Check bladder scan, rule out retention. IV fluid hydration. Hold lisinopril. Stop NSAIDs.
Hyperlipidemia -continue atorvastatin.
Normocytic anemia -likely chronic, likely due to CKD. Will need outpatient follow-up.
Raynaud's disease
Full code
Anticipated Discharge: Within 24 hours
Subjective/Interval History
-
Date of Service: March 15, 2024
Patient seen and examined. Feeling better. No complaints.
Objective Data
-
Labs:
Laboratory Results
03/15/24
05:18
WBC 7.2
Hgb 10.5 L
Hct 31.8 L
Plt Count 329
Sodium 137
Potassium 4.8
Chloride 107
Carbon Dioxide 23
BUN 38 H
Creatinine 2.1 H
Glucose 92
Calcium 8.4
Vital Signs:
Vital Signs
Temp Pulse Resp BP Pulse Ox
98.6 F 69 16 125/67 96
03/15/24 07:30 03/15/24 07:30 03/15/24 07:30 03/15/24 07:30 03/14/24 23:32
I&O
03/14/24 03/15/24 03/16/24
06:59 06:59 06:59
Intake Total 1680 / 1680
Output Total 750 / 750
Balance 930 / 930
Review of Systems
-
History Source: Patient
All other systems: Reviewed and negative
--- NOTE | 2024-03-15 11:07 | W.PN.UPDATE ---
Update Note
Progress Note Update
tiger text from hospitalist - patient requesting dc
switch to cefdinir 300 mg po bid x7 more days
follow up with pcp
--- NOTE | 2024-03-15 11:14 | W.DS.TRANS ---
DC Summary - [facility]
-
Discharge Instructions:
Discharge Diagnosis/Procedures Sepsis, UTI, acute kidney injury, chronic kidney
disease
Diet 2 Gram Sodium
Activity As tolerated
Driving Restrictions As prior to admission
Bathing Restrictions None
Blood Work BMP in 1 week with your primary care doctor
Instructions:
Stand-Alone Forms:
Changes to Home Medications: Yes
Discharge Medications:
DC Medications w/original date entered in [employer]
acetaminophen 500 mg tablet 1,000 mg PO Q6H PRN mild pain/fever 03/14/24
atorvastatin 20 mg tablet 20 mg PO HS 03/14/24
fiber 1 tab PO HS 03/14/24
ketoconazole 2 % shampoo 1 applic topical HS 03/14/24
multivitamin 1 tab PO HS 03/14/24
cefdinir 300 mg capsule 300 mg PO Q12 #14 caps 03/15/24
Home Medication Changes
Hold lisinopril
Pending Results: No
[2024-03-15] MEDS: OMNICEF 300 MG PO (11:23)
--- NOTE | 2024-03-15 11:56 | CM ---
Patient with Dx sepsis due to UTI.
Met with patient who resides with his in a 2 story house with first floor bedroom/bath.
The patient has been independent in ADLs and ambulation.
His only DME is a BP machine.
No prior VN or SNF.
PCP Renard Whelan
Pharmacy - [address], [place]
The patient says he feels ready for d/c home today. IMM completed.
His will provide transport home today.
No CM d/c needs identified.
Plan home today.
[2024-03-15 12:08] VITALS: BP 137/70
== END 2024-03-15 12:41 | disposition home or self-care (01) | DRG 872 ==
LOC: 4 EAST ACU 16:05
PROVIDERS: Physician Assistant; ADMITTING PHYSICIAN Hospitalist; CONSULT PHYSICIAN Student in an Organized Health Care Education/Training Program; EMERGENCY PHYSICIAN Emergency Medicine; FAMILY PHYSICIAN Internal Medicine
DX: A41.51 Sepsis due to Escherichia coli [E. coli] (principal); N39.0 Urinary tract infection, site not specified; N17.9 Acute kidney failure, unspecified; N13.8 Other obstructive and reflux uropathy; R65.20 Severe sepsis without septic shock; N18.32 Chronic kidney disease, stage 3b; I12.9 Hypertensive chronic kidney disease with stage 1 through stage 4 chronic kidney disease, or unspecified chronic kidney disease; I73.00 Raynaud's syndrome without gangrene; N40.1 Benign prostatic hyperplasia with lower urinary tract symptoms; E78.5 Hyperlipidemia, unspecified; D63.1 Anemia in chronic kidney disease; Z87.442 Personal history of urinary calculi; Z91.041 Radiographic dye allergy status; Z87.440 Personal history of urinary (tract) infections
CPT/HCPCS: 74176; 80048; 80053; 81003; 81015; 85025; 87040; 87086; 93005; 96365; 99284

== ENCOUNTER → 2024-04-07 12:34 | Outpatient (REF) | payer OTHER, SELFPAY | LOC: HWRAD 12:34 | PROVIDERS: ATTENDING PHYSICIAN Internal Medicine Nephrology; FAMILY PHYSICIAN Internal Medicine | DX: R80.0 Isolated proteinuria (principal) | CPT/HCPCS: 76775 ==

== ENCOUNTER 2025-10-13 07:13 | Emergency (ER) | payer OTHER, SELFPAY ==
[2025-10-13 07:15] VITALS: BP 141/72
--- NOTE | 2025-10-13 07:45 | ED.GENMED ---
History of Present Illness
<Melissa Chavez MD, Resident - Last Filed: 10/13/25 10:56>
General
Chief Complaint: Fall
Source: patient and significant other
Exam Limitations: none
Time Seen by Provider: 10/13/25 07:27
Nursing documentation reviewed up to this point in time: agreed with
History of Present Illness
History of Present Illness:
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
Per pt, he has fallen twice in the last month while getting up in the middle of the night to urinate. He uses the restroom multiple times a night. Last night, he got up to use the restroom and the next thing he remembers is his finding him on
the floor. He has no memory of falling or the moments preceding the fall or LOC. His states that he was confused/groggy when she found him. He states that he felt sleepy. Denies any focal weakness of limbs, denies any palpitations, denies any
dizziness/vertigo or lightheadedness. Denies recent dehydration. Denies any recent blurry vision, vision changes, or changes in speech. Denies any recent issues with balance or gait. Alert and conversant on exam. Pt fell onto his L side, endorses L
hip pain, L shoulder pain, and L facial pain. Bit his L-sided lip and L eye is swollen shut. States that he is in only 2/10 pain, could go back to sleep comfortably. Per , his slippers were facing toward the bathroom; thinks that he was on his
way but hadn't yet urinated.
Pt was somewhat recently diagnosed with MGUS, which is impacting his kidneys and for which he is being treated with teclistamab (at [facility]). States that he had his last infusion yesterday. Medication often makes him feel tired. However, first fall was
2 days before he was due for infusion, so they are not consistently correlated with medication timing. Last time he fell was also onto his L side.
Past History
<Melissa Chavez MD, Resident - Last Filed: 10/13/25 10:56>
Past History
ED Past Medical History: HTN, Hypercholesterolemia and Other (MGUS)
Social History
Personal:
Living: with family
Review of Systems
<Melissa Chavez MD, Resident - Last Filed: 10/13/25 10:56>
Review of Systems
All Other Systems: ROS reviewed and negative except as documented in HPI and ROS
Constitutional: Reports sleep disturbance
EENT: Reports mouth pain
Respiratory: Reports no symptoms
Cardiac: Reports no symptoms
ABD/GI: Reports no symptoms
: Reports frequency
Musculoskeletal: Reports joint pain (L shoulder, L hip )
Skin: Reports other (ecchymosis & swelling over L eye, abrasion on bridge of nose, swelling & ecchymosis of L-sided upper lip, dried blood around nares & mouth )
Neurological: Reports no symptoms
Hematologic/Lymphatic: Reports bruising
Psychiatric: Reports no symptoms
Phy Exam
<Melissa Chavez MD, Resident - Last Filed: 10/13/25 10:56>
General Physical Exam
General Presentation: no apparent distress
General age: appears stated age
General Skin: warm, dry and other (ecchymosis & swelling over L eye, abrasion on bridge of nose, swelling & ecchymosis of L-sided upper lip, dried blood around nares & mouth )
General Habitus: normal
General Mental: alert
ENT Exam
ENT Exam: EOMI
Eye Exam
Eye Exam: PERRL, EOMI and conjunctiva normal (no L sided conjunctival injection or hematoma, EOMI on L eye; L eyelid with significant swelling & ecchymosis, pt unable to fully open eye)
Cardiovascular Exam
Cardiovascular Exam: regular rate/rhythm and no edema
Heart Sounds: normal
Pulmonary Exam
Pulmonary Exam: no respiratory distress
Gastrointestinal Exam
Gastrointestinal Exam: soft and non distended
Neurological Exam
Neurological Exam: alert, oriented x3, CN II-XII intact, no motor deficits and speech normal
Musculoskeletal Exam
Musculoskeletal Exam: full ROM, no edema and other (mild tenderness to palpation over L hip; no pain with passive L hip external/internal rotation and L hip flexion; no tenderness to palpation over L shoulder; full active ROM of L shoulder without
pain)
Skin Exam
Skin Exam: other (ecchymosis and abrasions on face as described above )
Psychiatric Exam
Psychiatric Exam: normal mood/affect
Course
<Melissa Chavez MD, Resident - Last Filed: 10/13/25 10:56>
Orders/Labs/Results
Orders:
Orders
10/13/25 07:49
Electrocardiogram (*1) Urgent
Reason for Study: Syncope
CT Head W/o Iv Contrast Urgent
Comment:
Reason For Exam: head trauma
EKG- Treatment ONCE
10/13/25 08:01
CT Facial Bones W/o Iv Contras Stat
Comment:
Reason For Exam: trauma to head
10/13/25 09:02
Complete Blood Count/With Diff Urgent
Comprehensive Metabolic Panel Urgent
Troponin I Urgent
Abnormal Lab Results
10/13/25
09:02
RBC 3.13 L 10^6/uL
(4.70-6.10)
Hgb 11.5 L g/dL
(13.0-18.0)
Hct 33.3 L %
(39.0-52.0)
MCV 106.4 H fL
(80.0-94.0)
MCH 36.7 H pg
(27.0-31.0)
RDW 15.5 H %
(11.5-14.5)
Plt Count 114 L 10^3/uL
(130-400)
Absolute Neuts (auto) 8.6 H 10^3/uL
(1.4-6.5)
Absolute Lymphs (auto) 0.2 L 10^3/uL
(1.2-3.4)
Neutrophils % 91.9 H %
(42.2-75.2)
Lymphocytes % 2.1 L %
(20.5-51.1)
Sodium 134 L mmol/L
(135-145)
BUN 38 H mg/dl
(9-20)
Creatinine 2.2 H mg/dL
(0.7-1.3)
10/13/25 09:02
10/13/25 09:02
Vital Signs
Initial and Last Documented VS:
Initial Vital Signs
Temp Pulse Resp BP Pulse Ox
97.8 F 79 18 141/72 98
10/13/25 07:15 10/13/25 07:15 10/13/25 07:15 10/13/25 07:15 10/13/25 07:15
Last Documented Vital Signs
Temp Pulse Resp BP Pulse Ox
97.8 F 79 18 141/72 98
10/13/25 07:15 10/13/25 07:15 10/13/25 07:15 10/13/25 07:15 10/13/25 07:49
<Tamiko Panda, DO - Last Filed: 10/13/25 11:02>
Orders/Labs/Results
Orders:
Orders
10/13/25 07:49
Electrocardiogram (*1) Urgent
Reason for Study: Syncope
CT Head W/o Iv Contrast Urgent
Comment:
Reason For Exam: head trauma
EKG- Treatment ONCE
10/13/25 08:01
CT Facial Bones W/o Iv Contras Stat
Comment:
Reason For Exam: trauma to head
10/13/25 09:02
Complete Blood Count/With Diff Urgent
Comprehensive Metabolic Panel Urgent
Troponin I Urgent
Abnormal Lab Results
10/13/25
09:02
RBC 3.13 L 10^6/uL
(4.70-6.10)
Hgb 11.5 L g/dL
(13.0-18.0)
Hct 33.3 L %
(39.0-52.0)
MCV 106.4 H fL
(80.0-94.0)
MCH 36.7 H pg
(27.0-31.0)
RDW 15.5 H %
(11.5-14.5)
Plt Count 114 L 10^3/uL
(130-400)
Absolute Neuts (auto) 8.6 H 10^3/uL
(1.4-6.5)
Absolute Lymphs (auto) 0.2 L 10^3/uL
(1.2-3.4)
Neutrophils % 91.9 H %
(42.2-75.2)
Lymphocytes % 2.1 L %
(20.5-51.1)
Sodium 134 L mmol/L
(135-145)
BUN 38 H mg/dl
(9-20)
Creatinine 2.2 H mg/dL
(0.7-1.3)
10/13/25 09:02
10/13/25 09:02
Vital Signs
Initial and Last Documented VS:
Initial Vital Signs
Temp Pulse Resp BP Pulse Ox
97.8 F 79 18 141/72 98
10/13/25 07:15 10/13/25 07:15 10/13/25 07:15 10/13/25 07:15 10/13/25 07:15
Last Documented Vital Signs
Temp Pulse Resp BP Pulse Ox
97.8 F 79 18 141/72 98
10/13/25 07:15 10/13/25 07:15 10/13/25 07:15 10/13/25 07:15 10/13/25 07:49
<Melissa Chavez MD, Resident - Last Filed: 10/13/25 10:56>
MDM/Problems Addressed
Differential Diagnosis Includes:
Ddx etiology:
- Cardiogenic syncope
- Neuropathy, imbalance
- Orthostatic hypotension (unlikely)
- Micturition induced syncope
- CVA (no focal neuro sx, more syncopal)
- Epileptic events (returned to baseline MS quickly, no memory of events preceding, episode sounds more syncopal)
Ddx outcome:
- Concussion
- ICH (no AMS or focal neuro)
- Orbital or nasal bridge fracture (lack of point tenderness to palpation or crepitus)
- Hyphema (not seen on exam)
MDM/Problems Addressed:
- CT head wo contrast
- CT facial bones wo contrast
- EKG
- CBC, CMP
- Troponin
<Melissa Chavez MD, Resident - Last Filed: 10/13/25 10:56>
*Pulse Oximetry
SaO2: 98
Oxygen Mode of Delivery: Room air
Patient hypoxic: no
*Critical Care Note
Total Time (30-74mins, 75-104mins- exclusive of procedures): Not Applicable
<Melissa Chavez MD, Resident - Last Filed: 10/13/25 10:56>
Update Note
Update Note:
10:50am
EKG normal sinus rhythm, no changes from prior
Confirmed that no entry point for foreign body around L orbit, no breaks in skin around eye.
Discussed discharge home with pt and at bedside. Discussed following up with oncologist & PCP re: additional w/u of syncopal episodes, sleep study. Discussed f/u with ENT for nondisplaced nasal fracture if issues with healing or respiration.
Discussed applying ice packs and time for healing of ecchymosis & swelling of eye & lip.
ED Attending Note
<Melissa Chavez MD, Resident - Last Filed: 10/13/25 10:56>
-
Portions of this chart may have been created with voice recognition software.� Occasional wrong word or��sound alike� substitutions may have occurred due to the inherent limitations of voice recognition software.
<Tamiko Panda DO - Last Filed: 10/13/25 11:02>
ED Attending Note
Patient seen and examined by attending physician: Yes
I performed the substantive portion of visit, reviewed & personally made and approve the management plan that is documented in note by myself or CLAUDAI.: Yes
I performed a history and physical exam of patient and discussed management with resident, I reviewed resident's note and agree with documented findings and plan of care.: Yes
ED Attending Note:
75-year-old male with recent diagnosis of MGUS, currently on monoclonal antibody therapy, hypertension and CKD presenting to the emergency department for syncope. Patient notes that he got up to go to the bathroom early this morning and next thing
he knows he had a syncopal episode. found him on the ground. Does note history of fall a few weeks ago with similar situation. Denies prodromal weakness or lightheadedness. Does note that he is a heavy sleeper and is unsure if he was
sleepwalking. Patient arrives with facial trauma with swelling and ecchymosis to left orbit. However patient himself denies ocular pain or visual symptoms. Does note some left shoulder hide left hip pain. Notes that he has been able to ambulate
without issue. Denies any usage of blood thinners. Does report that he had the monoclonal antibody therapy yesterday. Vital signs on arrival are normal.
On exam patient is resting comfortably, no acute distress. Unremarkable cardiac and pulmonary exam. No focal neurologic deficits. On patient's head exam, obvious ecchymosis to the left orbit with swelling. Extraocular muscles however are intact.
No pain with extraocular movement. Pupils are equal and reactive. Small laceration to inner upper lip with bleeding controlled. Bite is intact. No significant tenderness to the left shoulder or the left hip with range of motion intact. Given
patient's findings on exam, plan for CT brain and CT facial imaging. No significant concern for ocular entrapment or retrobulbar hematoma. Regarding mechanism of fall, appears syncopal nature. Possible vasovagal etiology. Could be secondary to
recent monoclonal antibody and side effect from medications. Will plan for EKG and screening laboratory analysis.
10:40 -CT head is negative. CT of the facial bones shows soft tissue hematoma and nondisplaced nasal bone fracture. There is mention of possible foreign body. No sign of foreign body on direct visualization and reassessment. EKG obtained,
nonischemic. Patient remains asymptomatic. Feel stable for discharge. However given 2 syncopal episodes within the past month, recommending follow-up with both ENT for nasal bone fracture as well as cardiology. 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
oncologist and welding production supervisor. Return precautions discussed
Discharge Plan
Departure
Patient Disposition: Home (Routine Discharge)
Date of Disposition: 10/13/25
Time of Disposition: 10:51
Patient with high blood pressure during this ER visit?: No
Condition: Good
Covid-19: Not Applicable
Discharge Problem:
Syncope and collapse
Instructions: Nose fracture
Prescriptions:
No Action
multivitamin Tablet
1 tab PO HS
atorvastatin 20 mg tablet
20 mg PO HS
ketoconazole 2 % shampoo
1 applic TOPICAL HS
acetaminophen 500 mg Tablet
1,000 mg PO Q6H PRN (Reason: mild pain/fever)
fiber
1 tab PO HS
cefdinir 300 mg Capsule
300 mg PO Q12 Qty: 14 0RF
Referrals:
LIZABETH PALOMO MD [Family Provider]
Jeana Orosco MD [Active, Otology]
Referral Note: nondisplaced nasal fracture
Activity Restrictions/Additional Instructions:
You were seen in the ED today following a fall/loss of consciousness at home, leading to trauma to the L side of your face.
CT scan of your head did not show any brain bleed or swelling. CT scan of your facial bones showed a nondisplaced fracture of your nose. We have included instructions for care in the discharge materials, and we have also included referral
information for an ENT doctor who can see you for follow-up if you have issues with healing. The swelling around your eye should resolve with ice, elevation, time, and NSAIDs if needed.
An EKG of your heart rhythm did not show any abnormalities that would have contributed to your episode of passing out/falling. Your bloodwork was consistent with your known MGRS diagnosis; no other abnormalities were found. You should follow up with
your oncologist & your primary care physician for further workup of what is causing these episodes of falling at night.
Return to the ED if you have episodes of syncope with heart palpitations, severe chest pain, or recurrent head trauma.
Interventions
Interventions:
*Risk Screen - Suicide Last Done: 10/13/25 07:15
*General Assessment Last Done: 10/13/25 09:08
*Neglect/Abuse Screening Last Done: 10/13/25 07:15
*ED COVID-19 Vaccine History Last Done: 10/13/25 07:15
*ED Influenza Vaccine History Last Done: 10/13/25 07:15
[facility] Risk Assessment Tool Last Done: 10/13/25 09:08
ED-Musculoskeletal Assessment Last Done: 10/13/25 09:08
ED- Neurological Assessment Last Done: 10/13/25 09:08
ED-Skin Assessment Last Done: 10/13/25 09:08
Discharge Date and Time
Print Language: THAI
[2025-10-13 09:13] LABS: Hematocrit 33.3 % (39.0-52.0); Hemoglobin 11.5 g/dL (13.0-18.0); Mean Corp Hgb Conc. 34.5 g/dL (33.0-37.0); Mean Corpuscular Volume 106.4 fL (80.0-94.0); Nucleated Red Blood Cells % 0 % (-); Platelet Count 114 10^3/uL (130-400); Red Cell Dist. Width 15.5 % (11.5-14.5)
[2025-10-13 09:28] LABS: ALT (SGPT) 27 U/L (0-50); AST (SGOT) 27 U/L (17-59); Albumin 4.1 g/dl (3.5-5.0); Alkaline Phosphatase 60 U/L (38-126); Blood Urea Nitrogen 38 mg/dl (9-20); Calcium 8.8 mg/dl (8.4-10.2); Carbon Dioxide 26 mmol/L (22-30); Chloride 105 mmol/L (98-107); Glucose 93 mg/dl (70-99); Potassium 4.9 mmol/L (3.5-5.1); Sodium 134 mmol/L (135-145); Total Protein 6.4 g/dl (6.3-8.2); eGFR 30.66
[2025-10-13 09:39] LABS: Troponin I < 0.012 ng/ml
[2025-10-13 11:57] VITALS: BP 138/75
== END 2025-10-13 11:58 | disposition home or self-care (01) ==
LOC: EMR 07:13
PROVIDERS: EMERGENCY PHYSICIAN Student in an Organized Health Care Education/Training Program; FAMILY PHYSICIAN Internal Medicine
DX: R55 Syncope and collapse (principal); S02.2XXA Fracture of nasal bones, initial encounter for closed fracture; W18.39XA Other fall on same level, initial encounter; I12.9 Hypertensive chronic kidney disease with stage 1 through stage 4 chronic kidney disease, or unspecified chronic kidney disease; N18.9 Chronic kidney disease, unspecified; D47.2 Monoclonal gammopathy; E78.00 Pure hypercholesterolemia, unspecified; Z79.620 Long term (current) use of immunosuppressive biologic; Z91.81 History of falling
CPT/HCPCS: 99284; 70450; 70486; 80053; 84484; 85025; 93005